=== PATIENT | male | born 1980 ===

== ENCOUNTER 2016-09-29 08:35 | Emergency (ER) | payer SELFPAY ==
[~2016-09-29] VITALS: Ht 177.8 cm; Wt 75.0 kg
[2016-09-29 09:00] VITALS: Ht 177.8 cm; Wt 75.0 kg
[2016-09-29] MEDS ORDERED: LORAZEPAM 1 MG TAB PO ONE (09:30)
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
[2016-09-29 11:30] VITALS: BP 138/66; PULSE 110; RESP 16
== END 2016-09-29 11:30 | disposition home or self-care (01) ==
LOC: E/R 08:35
DX: F19.10 Other psychoactive substance abuse, uncomplicated (principal); R40.2142 Coma scale, eyes open, spontaneous, at arrival to emergency department; R40.2242 Coma scale, best verbal response, confused conversation, at arrival to emergency department; R40.2362 Coma scale, best motor response, obeys commands, at arrival to emergency department
CPT/HCPCS: 99283